=== PATIENT | female | born 1975 | race Caucasian/White ===

== ENCOUNTER → 2018-02-03 13:45 | Outpatient (REF) | payer SELFPAY ==
[2018-02-03 20:47] LABS: HGB 12.1 g/dL (12.0-15.5); Mean Corp. HGB Concentration 32.7 g/dL (32.0-36.0); Mean Corpuscular Volume 97.9 fL (80-95); Mean Platelet Volume 9.9 fL (8.0-11.0); Platelet Count 272 x1000/uL (130-400); RBC 3.78 m/cumm (4.00-5.20); White Blood Cell Count 5.81 k/cumm (4.4-10.8)
[2018-02-03 20:58] LABS: Anion Gap 9.2 mmol/L (3-11); BUN 8 mg/dL (7-18); CO2 27.8 mmol/L (21.0-32.0); CREATININE 0.86 mg/dL (0.55-1.02); Calcium 8.9 mg/dL (8.5-10.1); Chloride 103 mmol/L (98-107); Glucose 104 mg/dL (70-100); Potassium 4.1 mmol/L (3.5-5.1); Sodium 140 mmol/L (136-145)
[2018-02-03 21:15] LABS: Uric Acid 4.4 mg/dL (2.6-6.0)
[2018-02-05 10:44] LABS: CA 125 14 U/mL (0-30)
== END ==
LOC: NCHCN 13:45
PROVIDERS: PCP Nurse Practitioner Family; Visit Provider Nurse Practitioner Family
DX: R19.00 Intra-abdominal and pelvic swelling, mass and lump, unspecified site (principal); I26.99 Other pulmonary embolism without acute cor pulmonale; I27.20 Pulmonary hypertension, unspecified; D53.9 Nutritional anemia, unspecified; R60.1 Generalized edema; M10.9 Gout, unspecified; G47.00 Insomnia, unspecified; M25.50 Pain in unspecified joint
CPT/HCPCS: 80048; 85027; 86304; 84550

== ENCOUNTER 2018-03-12 11:56 | Outpatient (REF) | payer SELFPAY ==
[2018-03-12 20:59] LABS: TSH (W/Ref FT4) 5.19 uIU/mL (0.358-3.74)
[2018-03-12 21:18] LABS: FREE T4 0.87 ng/dL (0.76-1.46)
== END 2018-03-12 12:16 ==
LOC: NCHCN 11:56
PROVIDERS: PCP Nurse Practitioner Family; Visit Provider Nurse Practitioner Family
DX: I27.20 Pulmonary hypertension, unspecified (principal); I51.9 Heart disease, unspecified; I26.99 Other pulmonary embolism without acute cor pulmonale; L65.9 Nonscarring hair loss, unspecified; G47.00 Insomnia, unspecified; M10.9 Gout, unspecified; D53.9 Nutritional anemia, unspecified; G47.33 Obstructive sleep apnea (adult) (pediatric)
CPT/HCPCS: 84439; 84443

== ENCOUNTER 2018-07-09 12:50 | Outpatient (REF) | payer BC, SELFPAY ==
[2018-07-09 21:01] LABS: Abs Immature Grans 0.03 k/cumm (0.0-0.09); Absolute Basophil Count 0.03 k/cumm (0.0-0.2); Absolute Lymphocyte Count 2.19 k/cumm (1.2-3.4); Absolute Monocyte Count 0.55 k/cumm (0.11-0.7); Absolute Neutrophil Count 4.74 k/cumm (1.2-6.7); Basophils % 0.4; Eosinophils % 7.4; HCT 40.6 % (36.0-46.0); HGB 13.3 g/dL (12.0-15.5); Immature Grans % 0.4; Lymphocytes % 26.9; Mean Corp. HGB Concentration 32.8 g/dL (32.0-36.0); Mean Corpuscular Hemoglobin 32.6 pg (27.0-33.0); Mean Corpuscular Volume 99.5 fL (80-95); Mean Platelet Volume 10.6 fL (8.0-11.0); Monocytes % 6.8; Neutrophils % 58.1; Platelet Count 251 x1000/uL (130-400); RBC 4.08 m/cumm (4.00-5.20); RBC Distribution Width 13.1 % (11.7-14.6); White Blood Cell Count 8.14 k/cumm (4.4-10.8)
[2018-07-09 21:33] LABS: Iron 91 ug/dL (50-175)
[2018-07-09 21:37] LABS: Anion Gap 7.6 mmol/L (3-11); BUN 16 mg/dL (7-18); CO2 31.4 mmol/L (21.0-32.0); CREATININE 0.97 mg/dL (0.55-1.02); Calcium 9.2 mg/dL (8.5-10.1); Chloride 104 mmol/L (98-107); Glucose 106 mg/dL (70-100); Potassium 4.3 mmol/L (3.5-5.1); Sodium 143 mmol/L (136-145); TSH (W/Ref FT4) 4.33 uIU/mL (0.358-3.74); Uric Acid 4.5 mg/dL (2.6-6.0)
[2018-07-13 12:20] LABS: CA 125 11 U/mL (0-30)
== END 2018-07-09 13:10 ==
LOC: NCHCN 12:50
PROVIDERS: PCP Nurse Practitioner Family; Visit Provider Nurse Practitioner Family
DX: R19.00 Intra-abdominal and pelvic swelling, mass and lump, unspecified site (principal); E03.9 Hypothyroidism, unspecified; D53.9 Nutritional anemia, unspecified; R60.1 Generalized edema; M10.9 Gout, unspecified; G47.00 Insomnia, unspecified; I26.99 Other pulmonary embolism without acute cor pulmonale; I27.20 Pulmonary hypertension, unspecified; I51.9 Heart disease, unspecified
CPT/HCPCS: 80048; 86304; 83540; 84439; 84443; 84550; 85025

== ENCOUNTER 2018-07-21 00:37 | Outpatient (CLI) | payer BC, SELFPAY ==
--- NOTE | 2018-07-21 13:50 | MERGE_ITS ---
*[facility]* *[facility]* [address] [place] [address] Date of study: 07/21/2018 Transthoracic Echocardiography M-mode, complete 2D, complete spectral Doppler, and color Doppler *STUDY CONCLUSIONS* Summary: 1. Left ventricle: The cavity size was normal. Wall thickness was increased in a pattern of mild LVH. Systolic function was normal. The estimated ejection fraction was 55-60%. Wall motion was normal; there were no regional wall motion abnormalities. 2. Right ventricle: The cavity size was mildly dilated. Wall thickness was normal. Systolic function was normal. 3. Right atrium: The atrium was dilated. 4. Pulmonary arteries: Pulmonary systolic pressure was mildly increased, in the range of 35mm Hg to 40mm Hg. *PATIENT PRESENTATION* Height: 157.5cm ((62in) ) S/D Pressure: 129 / 78 Weight: 127kg ((279.4lb) ) BSA: 2.44m^2 Test start time: 02:00 PM. Test stop time: 03:00 PM. PERFORMING Unknown ORDERING Michelle Cobian Aprn REFERRING Michelle Cobian Aprn *PROCEDURE DATA* Procedure information: The patient was identified by two identifiers. This study was interpreted by [facility]. Pertinent images and digital data are archived for permanent storage and are available for subsequent review. Comparison was made to the study of 10/02/2017. Study status: Routine. Transthoracic echocardiography. M-mode, complete 2D, complete spectral Doppler, and color Doppler. A Transthoracic Echocardiogram was performed. Scanning was performed from the parasternal, apical, subcostal, and suprasternal notch acoustic windows. Images were obtained using an [id number] cardiac ultrasound machine. Image quality was adequate. Study completion: The patient tolerated the procedure well. There were no complications. History: PMH: Pulmonary embolism. RV diastolic dysfunction. Pulmonary HTN. *CARDIAC ANATOMY* Left ventricle: The cavity size was normal. Wall thickness was increased in a pattern of mild LVH. Systolic function was normal. The estimated ejection fraction was 55-60%. Wall motion was normal; there were no regional wall motion abnormalities. Diastolic parameters were normal. Aortic valve: Trileaflet; normal thickness leaflets. Mobility was not restricted. Doppler: Transvalvular velocity was within the normal range. There was no stenosis. There was no significant regurgitation. VTI ratio of LVOT to aortic valve: 0.74. Valve area (VTI): 2.1cm^2. Indexed valve area (VTI): 0.8cm^2/m^2. Peak velocity ratio of LVOT to aortic valve: 0.61. Valve area (Vmax): 1.7cm^2. Indexed valve area (Vmax): 0.7cm^2/m^2. Mean velocity ratio of LVOT to aortic valve: 0.57. Valve area (Vmean): 1.6cm^2. Indexed valve area (Vmean): 0.7cm^2/m^2. Mean gradient (S): 6.9mm Hg. Peak gradient (S): 14.5mm Hg. Aorta: Aortic root: The aortic root was normal in size. Ascending aorta: The ascending aorta was normal in size. Mitral valve: Structurally normal valve. Mobility was not restricted. Doppler: Transvalvular velocity was within the normal range. There was no evidence for stenosis. There was no significant regurgitation. Valve area by pressure half-time: 4.2cm^2. Indexed valve area by pressure half-time: 1.7cm^2/m^2. Peak gradient (D): 4mm Hg. Left atrium: The atrium was normal in size. Right ventricle: The cavity size was mildly dilated. Wall thickness was normal. Systolic function was normal. Pulmonic valve: The pulmonary valve appears to be grossly normal. Doppler: Transvalvular velocity was within the normal range. There was no evidence for stenosis. There was no significant regurgitation. Peak gradient (S): 5mm Hg. Tricuspid valve: Structurally normal valve. Doppler: Transvalvular velocity was within the normal range. There was no evidence for stenosis. There was trivial regurgitation. Pulmonary artery: Pulmonary systolic pressure was mildly increased, in the range of 35mm Hg to 40mm Hg. Right atrium: The atrium was dilated. Pericardium: There was no pericardial effusion. Systemic veins: Inferior vena cava: The vessel was normal in size. Measurements Left ventricle Value 10/02/2017 Reference LV ID, ED, PLAX 4.8 cm 3.3 3.5 - 6.0 LV ID, ES, PLAX 2.8 cm 1.9 2.1 - 4.0 LV PW thickness, ED, PLAX 1.2 cm 1.2 LV end-diastolic volume, 89 ml 1-p A2C LV ejection fraction, 1-p 58 % A2C LV end-diastolic volume, 118 ml 34 1-p A4C LV ejection fraction, 1-p 60 % 66 A4C LV e', lateral 0.146 m/sec 0.086 LV E/e', lateral 7 6 LV e', medial 0.088 m/sec 0.074 LV E/e', medial 11 7 LV e', average 0.117 m/sec 0.08 LV E/e', average 9 6 Ventricular septum Value 10/02/2017 Reference IVS thickness, ED, PLAX 1.3 cm 1.2 LVOT Value 10/02/2017 Reference LVOT ID, A-P 1.9 cm 2.0 LVOT area 2.8 cm^2 3.3 LVOT peak velocity, S 1.16 m/sec 0.83 LVOT mean velocity, S 0.71 m/sec 0.63 LVOT VTI, S 27.2 cm 16.9 LVOT peak gradient, S 5.4 mm Hg 2.7 LVOT mean gradient, S 2.5 mm Hg 1.8 Stroke volume (SV), LVOT 77 ml 55 DP Stroke index (SV/bsa), 31 ml/m^2 21 LVOT DP Aortic valve Value 10/02/2017 Reference Aortic valve peak 1.9 m/sec 1.3 velocity, S Aortic valve mean 1.24 m/sec 0.95 velocity, S Aortic valve VTI, S 37.0 cm 21.9 Aortic mean gradient, S 6.9 mm Hg 3.9 Aortic peak gradient, S 14.5 mm Hg VTI ratio, LVOT/AV 0.74 0.77 Aortic valve area, VTI 2.1 cm^2 2.5 Velocity ratio, peak, 0.61 0.64 LVOT/AV Aortic valve area, peak 1.7 cm^2 2.1 velocity Velocity ratio, mean, 0.57 0.67 LVOT/AV Aortic valve area, mean 1.6 cm^2 2.2 velocity Aortic valve area/bsa, 0.7 cm^2/m^2 0.8 mean velocity Aorta Value 10/02/2017 Reference Aortic root ID, ED 2.8 cm 2.8 Ascending aorta ID, A-P, S 3.3 cm Left atrium Value 10/02/2017 Reference LA ID, A-P, ES 3.7 cm 3.5 LA ID/bsa, A-P 1.5 cm/m^2 1.3 <=2.2 LA area, ES, A4C 21.9 cm^2 15.7 8.8 - 23.4 LA area, ES, A2C 15 cm^2 11 LA volume, ES, 2-p 49 ml 30 LA volume/bsa, ES, 2-p 20 ml/m^2 11 LA/aortic root ratio 1.3 1.24 Mitral valve Value 10/02/2017 Reference Mitral E-wave peak 1 m/sec 0.51 velocity Mitral A-wave peak 0.62 m/sec 0.54 velocity Mitral deceleration time 183 ms 138 150 - 230 Mitral pressure half-time 53 ms 40 Mitral peak gradient, D 4 mm Hg Mitral E/A ratio, peak 1.62 0.94 Mitral valve area, PHT, DP 4.2 cm^2 5.5 Tricuspid valve Value 10/02/2017 Reference Tricuspid regurg peak 2.9 m/sec 4.5 velocity Tricuspid peak RV-RA 33.8 mm Hg 79.8 gradient Right atrium Value 10/02/2017 Reference RA area, ES, A4C 19.5 cm^2 23.5 8.3 - 19.5 Pulmonic valve Value 10/02/2017 Reference Pulmonic peak gradient, S 5 mm Hg 2.5 Legend: (L) and (H) cathy values outside specified reference range. I have personally reviewed the images and have reviewed and edited the reported findings. Electronically signed by Tye Aiken 07/21/2018 15:44
== END 2018-07-21 00:57 ==
PROVIDERS: PCP Nurse Practitioner Family; Visit Provider Nurse Practitioner Family
DX: I26.99 Other pulmonary embolism without acute cor pulmonale (principal); I27.20 Pulmonary hypertension, unspecified
CPT/HCPCS: 93306

== ENCOUNTER 2018-11-04 00:35 | Outpatient (CLI) | payer BC, SELFPAY ==
--- NOTE | 2018-11-04 14:30 | DI.NM_ITS ---
SYMPTOM/DIAGNOSIS: PULMONARY EMBOLUS, SOB, I26.99 VENTILATION PERFUSION LUNG SCAN: Ventilation perfusion lung scan was performed according to the usual protocol with intravenous infusion of 5.0 millicuries of Technetium 99 labeled macro aggregated albumin and inhalation of 25 millicuries of Technetium 99 labeled DTPA. There is very good match between perfusion and ventilation images. No major perfusion defects identified. CONCLUSION: Findings consistent with low probability of pulmonary embolic disease.
== END 2018-11-04 00:55 ==
PROVIDERS: PCP Nurse Practitioner Family; Visit Provider Student in an Organized Health Care Education/Training Program
DX: R06.02 Shortness of breath (principal)
CPT/HCPCS: 78582

== ENCOUNTER 2019-01-29 16:15 | Outpatient (REF) | payer BC, SELFPAY ==
[2019-01-29 21:23] LABS: HCT 42.4 % (36.0-46.0); HGB 13.8 g/dL (12.0-15.5); Mean Corp. HGB Concentration 32.5 g/dL (32.0-36.0); Mean Corpuscular Hemoglobin 32.9 pg (27.0-33.0); Mean Platelet Volume 10.9 fL (8.0-11.0); Platelet Count 220 x1000/uL (130-400); RBC Distribution Width 13.6 % (11.7-14.6); White Blood Cell Count 8.86 k/cumm (4.4-10.8)
[2019-01-29 21:43] LABS: Anion Gap 9.1 mmol/L (3-11); BUN 15 mg/dL (7-18); CO2 30.9 mmol/L (21.0-32.0); CREATININE 0.89 mg/dL (0.55-1.02); Calcium 8.7 mg/dL (8.5-10.1); Chloride 105 mmol/L (98-107); Glucose 123 mg/dL (70-100); Potassium 4.5 mmol/L (3.5-5.1); Sodium 145 mmol/L (136-145); Uric Acid 4.6 mg/dL (2.6-6.0)
[2019-02-01 11:09] LABS: CA 125 13 U/mL (0-30)
== END 2019-01-29 16:35 ==
LOC: NCHCN 16:15
PROVIDERS: PCP Nurse Practitioner Family; Visit Provider Nurse Practitioner Family
DX: R19.09 Other intra-abdominal and pelvic swelling, mass and lump (principal); Z79.899 Other long term (current) drug therapy; M10.9 Gout, unspecified
CPT/HCPCS: 80048; 85027; 86304; 84443; 84550

== ENCOUNTER 2019-08-05 10:31 | Outpatient (REF) | payer BC, SELFPAY ==
[2019-08-05 12:54] LABS: Anion Gap 9.1 mmol/L (3-11); BUN 10 mg/dL (7-18); C-Reactive Protein 0.33 mg/dL (0.0-0.3); CO2 28.9 mmol/L (21.0-32.0); CREATININE 0.86 mg/dL (0.55-1.02); Chloride 101 mmol/L (98-107); Glucose 154 mg/dL (74-106); Potassium 4.4 mmol/L (3.5-5.1); Sodium 139 mmol/L (136-145); TSH (W/Ref FT4) 2.86 uIU/mL (0.36-3.74)
[2019-08-05 13:56] LABS: ESR 25 mm/hr (0-20)
[2019-08-05 18:59] LABS: Rheumatoid Factor <8.6 IU/mL (<12.0)
[2019-08-06 10:17] LABS: Cyclic Citrullinated Peptide <2.5 U/mL (<5.0)
[2019-08-06 15:38] LABS: ANA Titer Pattern 1:160 Speckled
[2019-08-09 08:48] LABS: ANA Interpretation Positive (Negative)
== END 2019-08-05 10:51 ==
LOC: NCHCN 10:31
PROVIDERS: PCP Nurse Practitioner Family; Visit Provider Nurse Practitioner Family
DX: M25.50 Pain in unspecified joint (principal); E03.9 Hypothyroidism, unspecified; Z51.81 Encounter for therapeutic drug level monitoring
CPT/HCPCS: 80048; 85652; 86200; 84443; 86038; 86140; 86431

== ENCOUNTER 2020-05-10 08:29 | Outpatient (REF) | payer BC, SELFPAY ==
[2020-05-10 22:42] LABS: Anion Gap 14.1 mmol/L (3-11); BUN 13 mg/dL (7-18); CO2 25.9 mmol/L (21.0-32.0); CREATININE 1.01 mg/dL (0.55-1.02); Calcium 8.1 mg/dL (8.5-10.1); Calculated LDL 145 mg/dL (<100); Chloride 100 mmol/L (98-107); Cholesterol 231 mg/dL (<200); Estimated GFR 59.82 (mL/min/1.73m2); Glucose 235 mg/dL (74-106); HDL Cholesterol 43 mg/dL (40-60); Potassium 4.3 mmol/L (3.5-5.1); Sodium 140 mmol/L (136-145); Triglyceride 217 mg/dL (<150)
[2020-05-10 22:50] LABS: Hemoglobin A1C 7.2 % (<5.7)
== END 2020-05-10 08:49 ==
LOC: NCHCN 08:29
PROVIDERS: PCP Nurse Practitioner Family; Visit Provider Nurse Practitioner Family
DX: Z00.00 Encounter for general adult medical examination without abnormal findings (principal); E03.9 Hypothyroidism, unspecified; R73.9 Hyperglycemia, unspecified; E66.9 Obesity, unspecified
CPT/HCPCS: 80048; 80061; 83036

== ENCOUNTER 2020-12-14 13:10 | Outpatient (REF) | payer BC, SELFPAY ==
[2020-12-14 13:42] LABS: Uric Acid 4.9 mg/dL (2.6-6.0)
[2020-12-15 09:50] LABS: CA 125 13 U/mL (<30)
== END 2020-12-14 13:11 | disposition home or self-care (01) ==
LOC: NCHCN 13:10
PROVIDERS: PCP Nurse Practitioner Family; Visit Provider Nurse Practitioner Family
DX: I51.9 Heart disease, unspecified (principal); I27.20 Pulmonary hypertension, unspecified; E78.5 Hyperlipidemia, unspecified; E11.40 Type 2 diabetes mellitus with diabetic neuropathy, unspecified; K30 Functional dyspepsia; J44.9 Chronic obstructive pulmonary disease, unspecified; E03.8 Other specified hypothyroidism; M10.9 Gout, unspecified; R19.00 Intra-abdominal and pelvic swelling, mass and lump, unspecified site
CPT/HCPCS: 86304; 84443; 84550

== ENCOUNTER 2021-01-03 08:05 | Outpatient (REF) | payer BC, SELFPAY ==
[2021-01-03 14:33] LABS: Anion Gap 8.8 mmol/L (3-11); BUN 8 mg/dL (7-18); CO2 29.2 mmol/L (21.0-32.0); Calcium 9.1 mg/dL (8.5-10.1); Chloride 102 mmol/L (98-107); Glucose 171 mg/dL (74-106); Potassium 4.7 mmol/L (3.5-5.1); Sodium 140 mmol/L (136-145)
== END 2021-01-03 08:06 | disposition home or self-care (01) ==
LOC: NCHCN 08:05
PROVIDERS: PCP Nurse Practitioner Family; Visit Provider Nurse Practitioner Family
DX: I27.20 Pulmonary hypertension, unspecified (principal)
CPT/HCPCS: 80048

== ENCOUNTER 2021-01-11 00:35 | Outpatient (CLI) | payer BC, SELFPAY ==
--- NOTE | 2021-01-11 11:38 | DI.US_ITS ---
APPROVED REPORT EXAM: Comprehensive 2D, Doppler, and color-flow Echocardiogram Patient Location: Out-Patient Dining Room Host/Hostess: Melanie Reynoso RDCS (AE) Indications: Right Ventricular Diastolic Dysfunction, Pulmonary HTN Other Information Study Quality: Adequate Conclusion Left Ventricle : The left ventricle is normal size. The left ventricular ejection fraction is within the normal range. There is normal left ventricular wall thickness. There is normal LV segmental wall motion. The left ventricular diastolic function is normal. LVEF is 60%. Right Ventricle : The right ventricle is normal size. The right ventricular systolic function is norm al. The RVSP is 26.4 mmHg. Atria : The left atrium size is normal. The right atrium size is normal. Valves: There are no hemodynamically significant valvular lesions. Great Vessels : The aortic root is normal in size. The ascending aorta is normal in size. Aortic arch is not well visualized. IVC is normal in size and collapses >50% with inspiration. Wall motion Left Ventricle The left ventricle is normal size. The left ventricular ejection fraction is within the normal range. There is normal left ventricular wall thickness. There is normal LV segmental wall motion. The left ventricular diastolic function is normal. There is no ventricular septal defect visualized. LVEF is 6 0%. Right Ventricle The right ventricle is normal size. The right ventricular systolic function is normal. The RVSP is 26 .4 mmHg. Atria The left atrium size is normal. The right atrium size is normal. The interatrial septum is intact wit h no evidence for an atrial septal defect. Aortic Valve The aortic valve is normal in structure. Aortic valve is trileaflet. There is no aortic valvular sten osis. No aortic regurgitation is present. Mitral Valve The mitral valve is normal in structure. No evidence of mitral valve stenosis. Trace mitral regurgita tion. Tricuspid Valve The tricuspid valve is normal in structure. There is no tricuspid valve stenosis. Trace to mild tricu spid regurgitation. Pulmonic Valve The pulmonary valve is normal in structure. There is no pulmonic valvular stenosis. There is no pulmo shady valvular regurgitation. Great Vessels The aortic root is normal in size. The ascending aorta is normal in size. Aortic arch is not well vis ualized. IVC is normal in size and collapses >50% with inspiration. Pericardium There is no pericardial effusion. 2D Dimensions IVSD d PLAX 1.02 cm F: 0.6-1.0 LV Vol A2C d MOD 98.5 mL LVPW d PLAX 1.03 cm F: 0.6 - 1.0 LV Vol A4C d MOD 102.7 mL LVID d PLAX 4.67 cm F: 3.8 - 5.2 LA vol/ BSA A2C s A-L 25.4 mL/m2 LVDs 3.05 cm F: 2.2 - 3.5 LA vol/ BSA A4C s A-L 31.4 mL/m2 Ao Root d 2.70 cm F: 2.7 - 3.3 LA Vol/ BSA Biplane s A-L 29.6 mL/m2 RA Area A4C 15.44 cm2 LA Area A4C s MOD 23.11 cm2 RA Vol/ BSA A4C s A-L 16.3 mL/m2 LA Area A2C s MOD 19.85 cm2 Ao Asc Diam d 3.16 cm F: 2.3 - 3.1 LV EF A4C MOD 60.1 % LV EF Teichholz 62.6 % LV EF A2C MOD 59.0 % LVEF (Garcia's) 59.47 % F: 54 - 74 LV EF Biplane MOD 59.5 % LV Volume 72.91 mL F: 46 - 106 SV 59.94 mL LV Volume Index 32.69 mL/m2 F: 29 - 61 SV Index 26.78 mL/m2 LV Vol Biplane MOD 100.8 mL FS 33.75 % M-Mode TAPSE 2.12 cm (M/F) >1.7 LV Diastology MV E' medial 0.111 (>0.07 m/s) E/A Ratio 1.5 LV E/e MED 8.90 (<14) MV E Vmax 0.99 (0.4-1.3 m/s) MV E' lateral 0.136 (>0.1 m/s) MV A Vmax 0.65 (0.4-1.3 m/s) LV E/e LAT 7.30 (<14) MV E/A Ratio 1.46 MV E/E' medial 8.92 MV E/E' lateral 7.31 Aortic Valve LVOT Area 3.44 cm2 AoV Area Vmax 2.56 cm2 LVOT Vmax 1.46 m/s AoV Area/ BSA (Vmax) 1.14 cm2/m2 LVOT Mean Steve. 0.98 m/s MIKAYLA Mean Steve. 2.52 cm2 LVOT Peak Grad 8.5 mmHg MIKAYLA Mean Steve. Index 1.12 cm2/m2 LVOT Mean Grad 4.5 mmHg LVOT VTI 0.290 m LVOT Diam s 2.05 cm AoV Vmax 1.97 m/s Velocity Ratio 0.74 AoV Mean Steve. 1.34 m/s AoV Peak Grad 15.5 mmHg LVOT SV 99.73 mL AoV Mean Grad 8.1 mmHg AoV VTI 0.349 m AoV Area VTI 2.86 cm2 AoV Area/ BSA (VTI) 1.28 cm/m2 Mitral Valve MV DT 200 (160-240 msec) MV PHT 58 msec MV Area PHT 3.79 cm2 MV VTI 0.212 m MV VTI Annulus 0.208 m MV Area VTI 4.60 (4.0-6.0 cm2) Pulmonary Valve PV Vmax 1.17 (0.5-1.5 m/s) RVOT Peak Gr. 1.90 mmHg PV Peak Grad 5.5 mmHg RVOT Mean Gr. 1.05 mmHg PV Mean Grad 2.9 mmHg RVOT VTI 0.161 m PV VTI 0.261 m RVOT Vmax 0.69 m/s Tricuspid Valve TR Peak Grad 23.4 mmHg TR Vmax 2.42 m/s RA Pressure 3.00 mmHg RVSP (TR) 26.4 mmHg
== END 2021-01-11 00:55 ==
PROVIDERS: PCP Nurse Practitioner Family; Visit Provider Nurse Practitioner Family
DX: I51.9 Heart disease, unspecified (principal); I27.20 Pulmonary hypertension, unspecified
CPT/HCPCS: 93306

== ENCOUNTER 2021-02-22 04:57 | Outpatient (CLI) | payer BC, SELFPAY ==
[2021-02-22] MEDS: Inhaler, Assist Device 1 EACH MC (09:11)
[2021-02-22] MEDS: Albuterol HFA 18 GM 200 PUFF INH IH (09:11)
--- NOTE | 2021-02-23 13:06 | W.PFT ---
Date of service: 02/22/21 Time of Service: 08:05 Pulmonary Function Test Result Requesting Provider [place] Indications: Concern for restrictive lung disease Interpretation Spirometry: There is no airflow limitation. There is no significant bronchodilator response. The FVC is low. Lung Volumes: There is mild restriction. Diffusion Capacity: The diffusion is reduced. Airway Pressure: Airways resistance is normal. Impression Mild restrictive lung disease Clinical Correlation therefore is recommended.
== END 2021-02-22 04:58 | disposition home or self-care (01) ==
LOC: RT 05:00
PROVIDERS: PCP Nurse Practitioner Family; Visit Provider Student in an Organized Health Care Education/Training Program
DX: J98.4 Other disorders of lung (principal)
CPT/HCPCS: 94060; 94726; 94729

== ENCOUNTER 2021-10-04 09:24 | Outpatient (REF) | payer BC, SELFPAY ==
[2021-10-04 15:32] LABS: Abs Immature Grans 0.06 10^3/uL (0.0-0.06); Absolute Basophil Count 0.06 10^3/uL (0.0-0.2); Absolute Eosinophil Count 0.38 10^3/uL (0.0-0.7); Absolute Lymphocyte Count 1.81 10^3/uL (1.2-3.4); Absolute Monocyte Count 0.47 10^3/uL (0.1-0.8); Absolute Neutrophil Count 4.89 10^3/uL (1.2-6.7); Basophils % 0.8; HCT 41.1 % (36.0-46.0); HGB 13.6 g/dL (11.2-15.7); Immature Grans % 0.8; Lymphocytes % 23.6; MCH 32.5 pg (27.0-33.0); MCHC 33.1 % (32.0-36.0); MCV 98.1 fL (80-95); MPV 9.6 fL (8.0-11.0); Monocytes % 6.1; Neutrophils % 63.7; Platelet Count 256 10^3/uL (130-400); RBC 4.19 10^6/uL (3.93-5.22); RDW 13.1 % (11.7-14.6); RDW-SD 46.1 fL; WBC 7.67 10^3/uL (4.4-10.8)
[2021-10-04 15:40] LABS: Iron 86 ug/dL (50-170); Total Iron Binding Capacity 367 ug/dL (250-450); Transferrin Sat 23 % (15-50)
[2021-10-04 15:51] LABS: ALT 63 U/L (14-59); AST 34 U/L (15-37); Albumin 3.7 g/dL (3.4-5.0); Alkaline Phosphatase 80 U/L (46-116); Anion Gap 9.4 mmol/L (3-11); BUN 12 mg/dL (7-18); Bilirubin, Total 0.5 mg/dL (0.2-1.0); CO2 27.6 mmol/L (21.0-32.0); CREATININE 0.9 mg/dL (0.55-1.02); Calcium 8.2 mg/dL (8.5-10.1); Chloride 99 mmol/L (98-107); Glucose 257 mg/dL (74-106); Potassium 4.4 mmol/L (3.5-5.1); Sodium 136 mmol/L (136-145); TSH (W/Ref FT4) 3.01 uIU/mL (0.36-3.74); Total Protein 7.1 g/dL (6.4-8.2); Uric Acid 3.3 mg/dL (2.6-6.0)
[2021-10-04 16:29] LABS: Calculated LDL 156 mg/dL (<100); Cholesterol 221 mg/dL (<200); Ferritin 52 ng/mL (8-252); Folate 4.2 ng/mL (8.6-20.0); HDL Cholesterol 45 mg/dL (40-60); Triglyceride 103 mg/dL (<150); Vitamin B12 354 pg/mL (193-986)
[2021-10-08 10:53] LABS: CA 125 18 U/mL (<30)
== END 2021-10-04 09:25 | disposition home or self-care (01) ==
LOC: NCHCN 09:24
PROVIDERS: PCP Nurse Practitioner Family; Visit Provider Nurse Practitioner Family
DX: R19.09 Other intra-abdominal and pelvic swelling, mass and lump (principal); E78.5 Hyperlipidemia, unspecified; E11.9 Type 2 diabetes mellitus without complications; E03.9 Hypothyroidism, unspecified; D53.9 Nutritional anemia, unspecified; F32.9 Major depressive disorder, single episode, unspecified; K30 Functional dyspepsia; E66.9 Obesity, unspecified; M10.9 Gout, unspecified
CPT/HCPCS: 80053; 80061; 86304; 82607; 82728; 82746; 83540; 83550; 84443; 84550; 85025

== ENCOUNTER 2022-04-25 03:15 | Outpatient (CLI) | payer BC, SELFPAY ==
[2022-04-25] MEDS: Inhaler, Assist Device 1 EACH MC (08:54)
[2022-04-25] MEDS: Albuterol HFA 18 GM 200 PUFF INH IH (08:54)
--- NOTE | 2022-04-26 14:46 | W.PFT ---
Date of service: 04/25/22 Time of Service: 08:01 Pulmonary Function Test Result Requesting Provider Bronsone Indications: Restrictive lung disease Interpretation Spirometry: There is no airflow limitation. There is a restrictive appearing pattern to spirometry. No bronchodilator response. Lung Volumes: Normal lung volumes Diffusion Capacity: Decreased diffusion Airway Pressure: Normal airways resistance. Impression Restrictive apirometry with normal lung volumes but a decreased diffusion. Note: When compared to 02/22/21, the total lung capacity has increased, as has the diffusion. Clinical Correlation therefore is recommended.
== END 2022-04-25 03:16 | disposition home or self-care (01) ==
LOC: RT 03:16
PROVIDERS: PCP Nurse Practitioner Family; Visit Provider Student in an Organized Health Care Education/Training Program
DX: J98.4 Other disorders of lung (principal)
CPT/HCPCS: 94060; 94726; 94729

== ENCOUNTER 2022-09-12 14:24 | Outpatient (REF) | payer BC, SELFPAY ==
[2022-09-12 15:23] LABS: Abs Immature Grans 0.04 10^3/uL (0.0-0.06); Absolute Basophil Count 0.04 10^3/uL (0.0-0.2); Absolute Eosinophil Count 0.37 10^3/uL (0.0-0.7); Absolute Lymphocyte Count 1.91 10^3/uL (1.2-3.4); Absolute Monocyte Count 0.48 10^3/uL (0.1-0.8); Absolute Neutrophil Count 4.69 10^3/uL (1.2-6.7); Basophils % 0.5; Eosinophils % 4.9; HGB 13.3 g/dL (11.2-15.7); Immature Grans % 0.5; Lymphocytes % 25.4; MCHC 32.4 % (32.0-36.0); MCV 96 fL (80-95); MPV 10.3 fL (8.0-11.0); Monocytes % 6.4; Neutrophils % 62.3; Platelet Count 242 10^3/uL (130-400); RBC 4.29 10^6/uL (3.93-5.22); RDW 13.4 % (11.7-14.6); RDW-SD 45.5 fL; WBC 7.53 10^3/uL (4.4-10.8)
[2022-09-12 16:08] LABS: ALT 40 U/L (14-59); AST 22 U/L (15-37); Albumin 3.9 g/dL (3.4-5.0); Alkaline Phosphatase 79 U/L (46-116); Anion Gap 7.2 mmol/L (3-11); BUN 14 mg/dL (7-18); Bilirubin, Total 0.4 mg/dL (0.2-1.0); CO2 29.8 mmol/L (21.0-32.0); CREATININE 1.1 mg/dL (0.55-1.02); Calcium 9.3 mg/dL (8.5-10.1); Calculated LDL 139 mg/dL (<100); Chloride 100 mmol/L (98-107); Cholesterol 211 mg/dL (<200); Estimated GFR 62.76 (mL/min/1.73m2); Ferritin 26 ng/mL (8-252); Glucose 140 mg/dL (74-106); HDL Cholesterol 49 mg/dL (40-60); Iron 64 ug/dL (50-170); Potassium 4.3 mmol/L (3.5-5.1); Sodium 137 mmol/L (136-145); TSH (W/Ref FT4) 3.54 uIU/mL (0.36-3.74); Total Iron Binding Capacity 404 ug/dL (250-450); Total Protein 7.3 g/dL (6.4-8.2); Transferrin Sat 16 % (15-50); Triglyceride 116 mg/dL (<150); Vitamin B12 361 pg/mL (193-986)
[2022-09-12 16:11] LABS: Folate > 20.0 ng/mL (8.6-20.0)
[2022-09-12 16:22] LABS: Uric Acid 3.1 mg/dL (2.6-6.0)
== END 2022-09-12 14:25 | disposition home or self-care (01) ==
LOC: NCHCN 14:24
PROVIDERS: PCP Nurse Practitioner Family; Visit Provider Nurse Practitioner Family
DX: E66.9 Obesity, unspecified (principal); G47.33 Obstructive sleep apnea (adult) (pediatric); E78.5 Hyperlipidemia, unspecified; E11.9 Type 2 diabetes mellitus without complications; K76.0 Fatty (change of) liver, not elsewhere classified; D53.9 Nutritional anemia, unspecified; J44.9 Chronic obstructive pulmonary disease, unspecified; M25.50 Pain in unspecified joint
CPT/HCPCS: 80053; 80061; 82607; 82728; 82746; 83540; 83550; 84443; 84550; 85025

== ENCOUNTER 2022-12-05 11:12 | Outpatient (CLI) | payer BC, SELFPAY ==
--- NOTE | 2022-12-05 11:00 | RT.EKG_ITS ---
APPROVED REPORT Exam: Resting ECG Reason for Exam: HF, pulm HTN Patient Location: O HR:81 bpm ECG Measurements Heart Rate 81 AXIS WY 165 P 48 QRSd 85 QRS -26 QT 368 T 39 QTc 428 Conclusion Sinus rhythm...normal P axis, V-rate 50- 99 Borderline left axis deviation...QRS axis (-15,-29) Late transition
== END 2022-12-05 11:13 | disposition home or self-care (01) ==
LOC: DI.CARD 11:13
PROVIDERS: PCP Nurse Practitioner Family; Visit Provider Internal Medicine Cardiovascular Disease
DX: I27.20 Pulmonary hypertension, unspecified (principal); I50.30 Unspecified diastolic (congestive) heart failure; R00.0 Tachycardia, unspecified
CPT/HCPCS: 93010

== ENCOUNTER 2022-12-11 01:35 | Outpatient (CLI) | payer BC, SELFPAY ==
--- NOTE | 2022-12-11 07:00 | DI.NM_ITS ---
Exam(s) MD LUNG SCAN VENT PERF GRP EXAM: MD LUNG SCAN VENT PERF GRP CLINICAL HISTORY: assess for CTEPH, pulmonary HTN, I27.20. TECHNIQUE: Injected Dose: Ventilation: 35 mCi Tc-99m DTPA via inhalation Perfusion: 4.5 mCi Tc-99m MAA via IV COMPARISON: [facility] lung scan vent perf aeros from 11/04/2018 CR XR CHEST ONE VIEW from 10/21/2022 CR XR CHEST 2V PA LATERAL from 12/11/2022 FINDINGS: Chest X-Ray: Clear lungs. Mildly prominent pulmonary arteries. Perfusion: No significant defects. No significant change from prior exam Ventilation:Normal . No significant change from prior exam IMPRESSION: 1. Low probability VQ examination. . . . Modified PIOPED II criteria Probability Criteria High Two or more segments of V/Q mismatch Low Normal Perfusion, Non segmental perfusion abnormalitie s, pleural effusion in at least 1/3 of pleural cavity with no other defect Radiograph/perfusion matched defect in mid to upper lung confined to segment, one to three small segmental perfusion defects (<25% of segment) Perfusion defect smaller than corresponding radiogra phic lesion. Intermediate All other findings DATA REPOSITORY:
--- NOTE | 2022-12-11 08:07 | DI.RAD_ITS ---
Exam(s) XR CHEST 2V PA LATERAL EXAM: XR CHEST 2V PA LATERAL CLINICAL HISTORY: pre-VQ scan, pulmonary HTN, I27.20 TECHNIQUE: 2D digital imaging was performed of the chest. Two images were obtained. PA and lateral views were obtained. COMPARISON: CR PORTABLE CHEST ONE VIEW from 10/03/2017 CR XR CHEST ONE VIEW from 10/21/2022 FINDINGS: MEDIASTINUM: Normal. HEART: Normal. PULMONARY VASCULATURE: There is again seen prominence of the pulmonary vasculature particularly on th e right suggesting pulmonary hypertension. LUNGS: There is increased opacity in the right lung base medially on the frontal view which appears t o lie in the right middle lobe. The left lung is clear. PLEURAL SPACE: No pleural effusion or pneumothorax. BONE:Within normal limits for the patient's age. OTHER FINDINGS:There is an IVC filter present below the hemidiaphragms. IMPRESSION: 1. Opacity in the right lung base medially which appears to lie in the middle lobe. CT scan of the c hest is recommended for further evaluation. 2. Unchanged prominence of the pulmonary vasculature which can be seen with pulmonary artery hyperten chasity. Unexpected findings DATA REPOSITORY: RADIATION DOSE DELIVERED:
== END 2022-12-11 01:55 ==
LOC: DI 01:35
PROVIDERS: PCP Nurse Practitioner Family; Visit Provider Student in an Organized Health Care Education/Training Program
DX: I27.20 Pulmonary hypertension, unspecified (principal); R91.8 Other nonspecific abnormal finding of lung field
CPT/HCPCS: 78582; 71046

== ENCOUNTER → 2023-02-19 01:04 | Outpatient (CLI) | payer BC, SELFPAY ==
--- NOTE | 2023-02-19 07:30 | DI.US_ITS ---
APPROVED REPORT EXAM: Comprehensive 2D, Doppler, and color-flow Echocardiogram Patient Location: Out-Patient Tape Folding Machine Operator: Boris Carvalho RDCS (AE) Indications: bubble study Echo Enhancing Agent Indication: Rule out Shunt Agent(s) / Amount(s) Used: Agitated Saline 40.0 cc Comments: Contrast study was performed with 4 IV injections of 10ccs of agitated normal saline, at [facility], with cough and post valsalva maneuver. Conclusion This is a limited study looking for intracardiac shunting No intracardiac shunt was identified with injection of agitated saline Wall motion Left Ventricle No ventricular septal defect. Atria Saline bubble contrast intravenous injection does not demonstrate PFO.
== END ==
PROVIDERS: PCP Nurse Practitioner Family; Visit Provider Student in an Organized Health Care Education/Training Program
DX: J96.91 Respiratory failure, unspecified with hypoxia (principal)
CPT/HCPCS: 93308

== ENCOUNTER → 2023-08-26 00:50 | Outpatient (CLI) | payer BC, SELFPAY ==
--- NOTE | 2023-08-26 | DI.US_ITS ---
Exam(s) US ABDOMEN LIMITED EXAM: US ABDOMEN LIMITED CLINICAL HISTORY: STEATOSIS OF LIVER,K76.0, FATTY CHANGE OF LIVER TECHNIQUE: Ultrasound abdomen performed using standard protocol. COMPARISON: CT CT CHEST WO from 01/29/2023 FINDINGS: PANCREAS: Normal where visualized. LIVER: There is diffuse increased echogenicity of the liver consistent with fatty infiltration. Hepa topetal flow in the Portal Vein. The liver measures in 21.9 cm length. No evidence of a hepatic mass. GALLBLADDER: No evidence of cholelithiasis. No evidence of wall thickening. No pericholecystic fluid identified. BILIARY SYSTEM: Common bile duct measures < 7 mm. No intrahepatic biliary ductal dilation. TRINH'S SIGN: Negative. RIGHT KIDNEY: Kidney is normal in size. No evidence of renal calculi. No evidence of hydronephrosis. No renal mass or cyst identified. ASCITES: None seen. IMPRESSION: Hepatomegaly and hepatic steatosis. DATA REPOSITORY:
--- NOTE | 2023-08-26 08:05 | DI.MAMMO_ITS ---
Exam(s) MAMMO SCREENING EXAM: MAMMO SCREENING CLINICAL HISTORY: SCREENING, Z12.31 TECHNIQUE: Bilateral full field digital CC and MLO mammographic images were obtained with 3D tomosyn thesis and utilizing computer aided detection (CAD). COMPARISON: This is a baseline examination. FINDINGS: Masses/Architectural Distortion: There is a well-circumscribed 5 mm nodule in the 12 o'clock position of the left breast. No areas of architectural distortion are seen. Microcalcifications: No suspicious pleomorphic-type are seen. Skin Thickening/Nipple Retraction: None. IMPRESSION: 1. Well-circumscribed nodule in the left breast. 2. Spot compression view and limited left breast ultrasound are recommended. BI-RADS Category 0 - Assessment Incomplete: Need additional imaging evaluation Breast Density - Category B - Scattered areas of fibroglandular density Breast density category C or D implies that the patient has dense breast tissue. Dense breast tissue is very common and is not abnormal but dense breast tissue can make it harder to find cancer on a ma mmogram. Also, dense breast tissue may increase their breast cancer risk. This information about the result of the mammogram report was provided to the patient to raise their awareness. Use this report when you speak with the patient about their risks for breast cancer, which includes their family hist ory. At that time, you may recommend for more screening tests (Ultrasound or MRI) as they might be us eful based on their risk. A negative radiographic report should not delay biopsy if a dominant or clinically suspicious mass is present. Up to ten percent of cancers are not identified on mammography. A negative report may reinforce clinical impression. Adenosis and dense breasts may obscure an underlying neoplasm. False positive reports average 6 to 10%. Patient will receive a letter notifying them of these results.
== END ==
PROVIDERS: PCP Nurse Practitioner Family; Visit Provider Nurse Practitioner Family
DX: Z12.31 Encounter for screening mammogram for malignant neoplasm of breast (principal); R16.0 Hepatomegaly, not elsewhere classified
CPT/HCPCS: 77063; 77067; 76705

== ENCOUNTER → 2023-08-28 00:57 | Outpatient (CLI) | payer BC, SELFPAY ==
--- NOTE | 2023-08-28 | DI.US_ITS ---
Exam(s) MG MAMMO SCREEN CALL BACK UNI US BREAST LT COMPLETE EXAM: MG MAMMO SCREEN CALL BACK UNI-LEFT AND COMPLETE LEFT BREAST ULTRASOUND CLINICAL HISTORY: F/U ABNL MAMMO, LT BREAST NODULE,R92.8. TECHNIQUE: Unilateral LEFT BREAST spot mammographic images obtained with 3D tomosynthesisand [employer] ng computer aided detection (CAD). . Complete LEFT breast Ultrasound was also performed, including all 4 quadrants, the retroareolar regio n, and the ipsilateral axilla. COMPARISON: Prior mammograms were reviewed. This additional imaging was performed due to findings described on the recent screening mammogram of 08/26/2023. FINDINGS: DIAGNOSTIC MAMMOGRAM: Additional mammographic views performed todaydoes not dissipate the nodule. We proceeded with ultras ound COMPLETE LEFT BREAST ULTRASOUND: Ultrasound performed today reveals a solitary finding which is at 12 o'clock position corresponds to the finding on the mammogram. This is a wider than taller slightly lobulated solid nodule which cont ains a small calcification, as also seen on the mammogram. This is most probably a small fibroadenom a. There are no other focal findings in all 4 quadrants. Scanning of the left axilla is negative for adenopathy.. IMPRESSION: 1. Probable benign finding. There is a 5 x 3 millimeter solid nodule at the 12 o'clock position cor responding to the finding on the mammogram. This is probably a fibroadenoma. Recent mammogram was h er baseline. Appropriate follow-up as discussed by myself with the patient today is repeat left breast imaging in 6 months to fluid left breast mammogram and ultrasound.. The patient was informed of these findings and recommendations by myself prior to leaving the departm ent today. BI-RADS Category 3 - 6 month - Probably Benign Finding: Recommend follow-up mammography in 6 months Breast Density - Category B - Scattered areas of fibroglandular density Breast density Category C or D implies that the patient has dense breast tissue. Dense breast tissue can make it harder to find cancer on a mammogram. Dense breast tissue is also associated with an incr eased risk of breast cancer. This information about the result of the mammogram report was provided to the patient to raise their awareness. Use this report when you speak with the patient about their risks for breast cancer, which includes their family history. At that time, you may recommend additional screening tests (Ultrasoun d or MRI) as these tests may add significant information. A negative radiographic report should not delay biopsy if a dominant or clinically suspicious mass is present. Up to ten percent of cancers are not identified on mammography. A negative report may reinforce clinical impression. Adenosis and dense breasts may obscure an underlying neoplasm. False positive reports average 6 to 10%. Patient will receive a letter notifying them of these results.
== END ==
PROVIDERS: PCP Nurse Practitioner Family; Visit Provider Nurse Practitioner Family
DX: Z12.31 Encounter for screening mammogram for malignant neoplasm of breast (principal); R92.8 Other abnormal and inconclusive findings on diagnostic imaging of breast
CPT/HCPCS: 76642; 77063; 77067

== ENCOUNTER 2023-11-12 09:29 | Outpatient (REF) | payer BC, SELFPAY ==
[2023-11-12 14:51] LABS: HCT 39.4 % (36.0-46.0); HGB 12.2 g/dL (11.2-15.7); MCH 27.7 pg (27.0-33.0); MCV 89 fL (80-95); MPV 9.9 fL (8.0-11.0); Platelet Count 255 10^3/uL (130-400); RBC 4.41 10^6/uL (3.93-5.22); RDW 15.6 % (11.7-14.6); RDW-SD 50.4 fL
[2023-11-12 15:36] LABS: Hemoglobin A1C 6.6 % (<5.7)
[2023-11-12 15:43] LABS: ALT 26 U/L (14-59); AST 17 U/L (15-37); Albumin 4.1 g/dL (3.4-5.0); Alkaline Phosphatase 71 U/L (46-116); Anion Gap 7.3 mmol/L (3-11); BUN 14 mg/dL (7-18); Bilirubin, Total 0.5 mg/dL (0.2-1.0); CO2 28.7 mmol/L (21.0-32.0); CREATININE 1.2 mg/dL (0.55-1.02); Calcium 9.4 mg/dL (8.5-10.1); Chloride 103 mmol/L (98-107); Estimated GFR 56.19 (mL/min/1.73m2); Ferritin 17 ng/mL (8-252); Folate > 20.0 ng/mL (8.6-20.0); Glucose 131 mg/dL (74-106); Potassium 4.2 mmol/L (3.5-5.1); Sodium 139 mmol/L (136-145); TSH (W/Ref FT4) 1.92 uIU/mL (0.36-3.74); Total Protein 7.5 g/dL (6.4-8.2); Vitamin B12 327 pg/mL (193-986)
[2023-11-12 15:52] LABS: Uric Acid 3.3 mg/dL (2.6-6.0)
[2023-11-12 16:15] LABS: Iron 47 ug/dL (50-170); Total Iron Binding Capacity 439 ug/dL (250-450); Transferrin Sat 11 % (15-50)
[2023-11-12 16:24] LABS: Abs Immature Grans 0.03 10^3/uL (0.0-0.06); Absolute Basophil Count 0.04 10^3/uL (0.0-0.2); Absolute Eosinophil Count 0.35 10^3/uL (0.0-0.7); Absolute Lymphocyte Count 1.67 10^3/uL (1.2-3.4); Absolute Monocyte Count 0.39 10^3/uL (0.1-0.8); Absolute Neutrophil Count 4.31 10^3/uL (1.2-6.7); Basophils % 0.6 %; Eosinophils % 5.2 %; Immature Grans % 0.4 %; Lymphocytes % 24.6 %; Monocytes % 5.7 %; Neutrophils % 63.5 %
[2023-11-13 09:44] LABS: CA 125 12 U/mL (<30)
== END 2023-11-12 09:30 | disposition home or self-care (01) ==
LOC: NCHCN 09:29
PROVIDERS: PCP Nurse Practitioner Family; Visit Provider Nurse Practitioner Family
DX: K76.0 Fatty (change of) liver, not elsewhere classified; D52.0 Dietary folate deficiency anemia; M10.9 Gout, unspecified; E11.9 Type 2 diabetes mellitus without complications
CPT/HCPCS: 80053; 85027; 86304; 82607; 82728; 82746; 83036; 83540; 83550; 84443; 84550; 85025

== ENCOUNTER 2024-03-04 01:56 | Outpatient (CLI) | payer BC, SELFPAY ==
--- NOTE | 2024-03-04 09:45 | DI.MAMMO_ITS ---
Exam(s) MG MAMMO DIAGNOSTIC UNI EXAM: MG MAMMO DIAGNOSTIC UNI CLINICAL HISTORY: ABNL FINDINGS R92.8 6 MO FU TECHNIQUE: Left cc and MLO mammogram images were performed according to the [facility] with CAD system, tomosynthesis and C-view imaging. COMPARISON: MG MG MAMMO SCREENING from 08/26/2023 MG MG MAMMO SCREEN CALL BACK UNI from 08/28/2023 US US BREAST LT COMPLETE from 08/28/2023 FINDINGS: The left breast is composed of scattered fibroglandular densities, Breast Density category B. No suspicious masses or suspicious microcalcifications are seen. Stable circumscribed nodule in th e central left breast consistent with a small fibroadenoma. No skin thickening or abnormal axillary lymph nodes are seen. IMPRESSION: BI-RADS Category 2 - Benign Findings Yearly screening mammography is recommended. Breast Density - Category B, scattered fibroglandular densities. A negative radiographic report should not delay biopsy if a dominant or clinically suspicious mass is present. Up to ten percent of cancers are not identified on mammography. A negative report may reinforce clinical impression. Adenosis and dense breasts may obscure an underlying neoplasm. False positive reports average 6 to 10%. Patient will receive a letter notifying them of these results.
== END 2024-03-04 02:16 ==
LOC: DI 01:57
PROVIDERS: PCP Nurse Practitioner Family; Visit Provider Nurse Practitioner Family
DX: Z12.31 Encounter for screening mammogram for malignant neoplasm of breast (principal); R92.323 Mammographic fibroglandular density, bilateral breasts
CPT/HCPCS: 77061; 77065; G0279

== ENCOUNTER 2024-09-08 08:49 | Emergency (ER) | payer BC, SELFPAY ==
[2024-09-08] VITALS (15 sets, daily range): BP systolic 100–152; BP diastolic 51–78; PULSE 68–88; RESP 16; TEMP 37; O2SAT 97–100
--- NOTE | 2024-09-08 09:22 | W.ED.GENAD ---
Discharge Plan Disposition Patient Disposition: Home Condition: Good Discharge Details Clinical Impression: Nausea vomiting and diarrhea Primary Care Provider: Michelle Cobian ED Provider: Tori Lopez Home Meds and New Rx's Prescriptions: New ondansetron 4 mg tablet,disintegrating 4 mg PO Q6H PRN (Reason: nausea and vomiting) Qty: 14 0RF Continued bupropion HCl 150 mg tablet extended release 24 hr 150 mg PO QAM buspirone 5 mg tablet 5 mg PO BID CPAP 1 unit miscellaneous QHS (DME) Oxygen Tank See Rx Instructions .ROUTE .MEDSUPPLY Qty: 1 Rx Instructions: 2 L/min at rest and 4Lpm with activity melatonin 10 mg capsule 10 mg PO HS PRN Ozempic 0.25 mg or 0.5 mg (2 mg/3 mL) pen injector 0.25 mg subcut QWEEK Rx Instructions: for 4 weeks Eliquis 5 mg tablet 2.5 mg PO BID allopurinol 100 mg tablet 200 mg PO DAILY dapagliflozin propanediol [Farxiga] 10 mg tablet 10 mg PO DAILY duloxetine 30 mg capsule,delayed release(DR/EC) 30 mg PO DAILY folic acid 1 mg tablet 1 mg PO DAILY gabapentin 400 mg capsule 400 mg PO BID Patient Comments: Pt states she takes 400 mg in the AM and 800 mg at night lisinopril 5 mg tablet 5 mg PO DAILY Opsumit 10 mg tablet 10 mg PO DAILY sildenafil (pulm.hypertension) [Revatio] 20 mg tablet 20 mg PO TID Rx Instructions: administer doses at least 4-6 hours apart furosemide 20 mg tablet 20 mg PO DAILY Discharge Instructions Instructions: Diarrhea, Adult ED, Nausea and Vomiting, Adult ED Additional Instructions: As we discussed, your labs are reassuring. You are slightly anemic which is not surprising given your recent surgery. Your potassium is also barely below. You may be eating more potassium rich foods when you are able to tolerate a meal. This does not appear to be associated with your recent surgery but I do encourage you to reach out to [facility] and let them know about your illness in the postoperative setting. Please continue to encourage hydration as we discussed. Please continue with postoperative instructions as recommended by [facility]. You may use the Zofran as prescribed for any recurrent nausea or vomiting. Please hold off on Imodium at this point as your diarrhea seems to have slowed. I am concerned to make you constipated in the postoperative setting may increase your discomfort. However, if your diarrhea becomes to be more frequent you may take this as prescribed on the packaging. Please take care not to overtreat and developed constipation. Stable hydrated cannot prevent this. Please follow-up with [facility] as previously recommended. If you develop increased pain, fever/chills, inability stay hydrated or other new/worsening symptom please seek care urgently once again. Referrals: Michelle Cobian [Primary Care Provider] - Discharge Data Discharge Date/Time-TO BE ENTERED AT DEPARTURE: 09/08/24 10:54 HPI General Date/Time Provider Initiated Documentation: 09/08/24 08:59. Limitations to Documentation: no limitations. Information obtained by: patient, family (), RN notes reviewed and old records reviewed. History of Present Illness 49 year old F presents to the emergency department with the chief complaint of nausea, vomiting, diarrhea, described as moderate, Quality is described as other (denies any pain), Patient started experiencing this day(s) and it has been intermittent (improving). No relieving factors improve symptom(s), Eating worsens symptoms . Patient notes no other symptoms.. Patient did receive the following treatments prior to arrival, none Related Data Home Medications ?Medication ?Instructions ?Recorded ?Confirmed bupropion HCl 150 mg 24 hr tablet, 150 mg PO QAM 10/28/18 09/08/24 extended release CPAP 1 unit miscellaneous QHS 07/09/19 09/08/24 buspirone 5 mg tablet 5 mg PO BID 07/09/19 09/08/24 Oxygen #1 ea 05/02/21 09/08/24 dapagliflozin propanediol 10 mg 10 mg PO DAILY 11/04/22 09/08/24 tablet (Farxiga) duloxetine 30 mg capsule,delayed 30 mg PO DAILY 11/04/22 09/08/24 release folic acid 1 mg tablet 1 mg PO DAILY 11/04/22 09/08/24 allopurinol 100 mg tablet 200 mg PO DAILY 12/05/22 09/08/24 apixaban 5 mg tablet (Eliquis) 2.5 mg PO BID 12/05/22 09/08/24 gabapentin 400 mg capsule 400 mg PO BID 12/05/22 09/08/24 lisinopril 5 mg tablet 5 mg PO DAILY 12/05/22 09/08/24 melatonin 10 mg capsule 10 mg PO HS PRN 12/05/22 09/08/24 semaglutide 0.25 mg or 0.5 mg (2 0.25 mg subcut QWEEK 01/30/23 09/08/24 mg/3 mL) subcutaneous pen injector (Ozempic) furosemide 20 mg tablet 20 mg PO DAILY 09/08/24 09/08/24 macitentan 10 mg tablet (Opsumit) 10 mg PO DAILY 09/08/24 09/08/24 ondansetron 4 mg disintegrating 4 mg PO Q6H PRN nausea and 09/08/24 tablet vomiting #14 tabs sildenafil (pulm.hypertension) 20 20 mg PO TID 09/08/24 09/08/24 mg tablet (Revatio) Previous Rx's ?Medication ?Instructions ?Recorded ondansetron 4 mg disintegrating 4 mg PO Q6H PRN nausea and 09/08/24 tablet vomiting #14 tabs Allergies Allergy/AdvReac Type Severity Reaction Status Date / Time No Known Allergies Allergy Unverified 01/30/23 14:24 General Stated Complaint: Nausea/Vomit/Diar JADA: 3 Review of Systems Constitutional Constitutional: Reports as per HPI, Denies chills, Denies fever(s) and Denies headache(s) ENT Ears, Nose, Mouth, and Throat: Denies headache(s) Cardiovascular Cardiovascular: Reports as per HPI, Denies chest pain and Denies dyspnea Respiratory Respiratory: Reports as per HPI, Denies cough and Denies dyspnea Gastrointestinal Gastrointestinal: Reports as per HPI Musculoskeletal Musculoskeletal: Reports as per HPI and Denies back pain Integumentary/Breasts Skin/Breast: Reports as per HPI and Denies rash Neurologic Neurologic: Reports as per HPI and Denies headache(s) Exam Const General: cooperative, healthy appearing, comfortable, no acute distress and well developed Nutritional Appearance: well nourished Orientation: alert and awake [facility] Head: normal to inspection Mouth: moist mucous membranes Resp Effort & Inspection: normal respiratory effort, able to speak in complete sentences and no respiratory distress Auscultation: clear to auscultation bilaterally, no rales, no rhonchi and no wheezes Cardio Rate: regular rate Rhythm: regular rhythm Heart Sounds: S1 normal and S2 normal GI Inspection: non-distended, incision (1 cm spitting stitch, wound appears to be healing well with no evidence of ) and obesity Palpation: soft, no hepatosplenomegaly, no guarding, no masses and nontender Percussion: normal to percussion Auscultation: normal bowel sounds Back/Spine/Pelvis Back: no CVA tenderness Skin General skin exam: other (incision on abdomen) Neuro General: patient alert and patient awake Cognition: normal cognition Speech: speech normal Gait: normal gait Course Vital Signs Vital signs: Vital Signs Temperature 37.0 C 09/08/24 08:52 Pulse 88 09/08/24 08:52 Respiratory Rate 16 09/08/24 08:52 Blood Pressure 152/78 H 09/08/24 08:52 Pulse Oximetry 99 09/08/24 08:52 Temperature 37.0 C 09/08/24 09:07 Temperature Source Oral 09/08/24 09:07 Pulse 88 09/08/24 09:07 Respiratory Rate 16 09/08/24 09:07 Blood Pressure 152/78 H 09/08/24 09:07 Blood Pressure Position Sitting 09/08/24 09:07 Pulse Oximetry 99 09/08/24 09:07 Oxygen Delivery Method Nasal Cannula 09/08/24 09:07 Oxygen Flow Rate 4 09/08/24 09:07 Pain Level 4 09/08/24 09:07 Medical Decision Making Patient is a pleasant 49-year-old female, accompanied by her , presenting to be chief complaint of nausea, vomiting and diarrhea. Patient has complex medical history including pulmonary emboli causing right-sided heart strain, currently anticoagulated and on 4 L nasal cannula at baseline. She also had a recent surgery on 08/30/2024 for a large pelvic mass that was attached to her uterus. Was discharged on 09/01/2024. She denies any postoperative complications or intraoperative complications, and is back on her anticoagulation any after surgery. States that is otherwise been feeling well, pain is not increased and she is not using any pain medications currently in the postoperative setting. States that about 4 days ago she began having nausea, vomiting and diarrhea. Denies any blood in her emesis or stool. No change in urinary habits. States that she has been trying to take some sips of fluids but has had difficulty hydrating secondary to the nausea and vomiting. She denies any chest pain or shortness of breath. On exam, patient appears nontoxic. Resting comfortably no acute distress. Hemodynamically stable. Lungs are clear, normal cardiac exam. Exam of the abdomen shows a well-healing surgical incision midline. She was spitting a stitch about 1 cm in length which was trimmed back. No opening or separation of the wound edges. Abdomen is nontender. Bowel sounds are normal. Her history, will concerning with recent surgery, is not suggestive of surgical complication. Rather, it seems that patient is likely suffering from viral illness or other GI pathogen. She did have 1 round of antibiotics prior to surgery but has not had any since then. With the emesis as well, which seems to be her primary concern, unlikely to be C. difficile. Will obtain baseline labs, hydrate the patient and give antiemetic. Labs are reassuring. Discussed with patient. Patient feeling significantly improved after IV Zofran and fluids. She feels ready for discharge to home. I did encourage that she return to her surgical team this is possible to do let them know about her acute illness. Strict return precautions were discussed. Will continue with the antiemetics. We also discussed the use of Imodium. However, as she reports that her diarrhea has slowed we will hold off at this point. I am concerned that in beginning her on Imodium may cause constipation which would increase her discomfort in the postoperative setting. Patient and feels safe and agreed with this plan. She does seem to have good support. She is able to return with any new or worsening symptoms. All of her questions and concerns were addressed she is in agreement this plan. This documentation was generated using [employer] dictation system, please disregard any oddities of phrase or misspellings. Quality:SDOH Health Related Social Needs: No Data to Display PFSH All Active Problems (Updated 09/08/24 @ 10:34 by NGOC Vicente) Nausea vomiting and diarrhea (Acute) Respiratory failure with hypoxia (Acute) Abnormal chest xray (Acute) Gout (Chronic) Pelvic mass (Acute) Diabetes mellitus (Chronic) Pulmonary HTN (Acute) Restrictive lung disease (Acute) Multiple pulmonary nodules (Acute) Neuropathy (Acute) Dyspepsia (Acute) Urinary frequency (Acute) Hyperthyroidism (Chronic) Hair loss (Acute) Insomnia (Acute) Tachycardia (Acute) Depression (Chronic) Pulmonary embolism (Chronic) (HFpEF) heart failure with preserved ejection fraction (Acute) Pelvic mass in female (Acute) Anasarca (Acute) Ascites (Acute) Pleural effusion (Acute) Medical History COPD (chronic obstructive pulmonary disease) DVT (deep venous thrombosis) Obesity LEATHA on CPAP Surgical History S/P IVC filter (~09/2017) Family History Father Heart disease Mother Heart disease Brother Asthma Allergy Social History Smoking/Tobacco Use Status: Former Tobacco Use Quit Date: 09/22/17 Smoking risk assessment performed?: Yes Alcohol Intake: current Alcohol Intake frequency: holidays/special occasions only Drug use: Never What type of physical activity do you participate in: none Do you feel safe in your relationship?: Yes
[2024-09-08] MEDS: Lactated Ringers 1,000 ML 1000 ML IV (09:29)
[2024-09-08] MEDS: Ondansetron 4 MG/2 ML VIAL IVP (09:35)
[2024-09-08 09:37] LABS: Absolute Basophil Count 0.04 10^3/uL (0.0-0.2); Absolute Eosinophil Count 0.27 10^3/uL (0.0-0.7); Absolute Lymphocyte Count 1.46 10^3/uL (1.2-3.4); Absolute Monocyte Count 0.68 10^3/uL (0.1-0.8); Basophils % 0.4 %; HCT 35.5 % (36.0-46.0); Immature Grans % 1.1 %; Lymphocytes % 16.3 %; MCH 29.1 pg (27.0-33.0); MCV 94 fL (80-95); MPV 9.1 fL (8.0-11.0); Monocytes % 7.6 %; Neutrophils % 71.6 %; Nucleated RBC 0.4 % (0.0-0.3); Platelet Count 260 10^3/uL (130-400); RBC 3.78 10^6/uL (3.93-5.22); RDW 15.4 % (11.7-14.6); RDW-SD 51.6 fL; WBC 8.95 10^3/uL (4.4-10.8)
[2024-09-08 10:02] LABS: ALT 24 U/L (14-59); AST 20 U/L (15-37); Albumin 3.2 g/dL (3.4-5.0); Alkaline Phosphatase 55 U/L (46-116); Anion Gap 7.2 mmol/L (3-11); BUN 10 mg/dL (7-18); Bilirubin, Total 0.6 mg/dL (0.2-1.0); CO2 32.8 mmol/L (21.0-32.0); CREATININE 0.9 mg/dL (0.55-1.02); Chloride 100 mmol/L (98-107); Estimated GFR 78.86 (mL/min/1.73m2); Glucose 123 mg/dL (74-106); Magnesium 1.9 mg/dL (1.8-2.4); Potassium 3.4 mmol/L (3.5-5.1); Sodium 140 mmol/L (136-145); Total Protein 6.4 g/dL (6.4-8.2)
== END 2024-09-08 10:54 | disposition home or self-care (01) ==
PROVIDERS: Emergency Provider Physician Assistant; PCP Nurse Practitioner Family
DX: R11.2 Nausea with vomiting, unspecified (principal); R19.7 Diarrhea, unspecified; I27.20 Pulmonary hypertension, unspecified; J44.9 Chronic obstructive pulmonary disease, unspecified; I50.32 Chronic diastolic (congestive) heart failure; Z86.718 Personal history of other venous thrombosis and embolism; Z86.711 Personal history of pulmonary embolism; Z90.710 Acquired absence of both cervix and uterus; Z98.890 Other specified postprocedural states; Z79.01 Long term (current) use of anticoagulants; Z99.81 Dependence on supplemental oxygen; Z87.891 Personal history of nicotine dependence
CPT/HCPCS: 36415; 80053; 96361; 96374; 99284; 83735; 85025; J2405

== ENCOUNTER 2024-09-30 17:32 | Outpatient (REF) | payer BC, SELFPAY ==
[2024-09-30 21:06] LABS: Abs Immature Grans 0.03 10^3/uL (0.0-0.06); Absolute Basophil Count 0.03 10^3/uL (0.0-0.2); Absolute Eosinophil Count 0.27 10^3/uL (0.0-0.7); Absolute Lymphocyte Count 1.89 10^3/uL (1.2-3.4); Absolute Monocyte Count 0.53 10^3/uL (0.1-0.8); Absolute Neutrophil Count 4.15 10^3/uL (1.2-6.7); Basophils % 0.4 %; Eosinophils % 3.9 %; HCT 35.6 % (36.0-46.0); HGB 10.7 g/dL (11.2-15.7); Immature Grans % 0.4 %; Lymphocytes % 27.4 %; MCH 27.4 pg (27.0-33.0); MCHC 30.1 % (32.0-36.0); MCV 91 fL (80-95); MPV 10.1 fL (8.0-11.0); Monocytes % 7.7 %; Neutrophils % 60.2 %; Platelet Count 207 10^3/uL (130-400); RBC 3.91 10^6/uL (3.93-5.22); RDW 14.5 % (11.7-14.6); RDW-SD 47.8 fL
[2024-09-30 21:25] LABS: Iron 25 ug/dL (50-170); Total Iron Binding Capacity 425 ug/dL (250-450); Transferrin Sat 6 % (15-50)
[2024-09-30 21:49] LABS: ALT 28 U/L (14-59); AST 15 U/L (15-37); Alkaline Phosphatase 57 U/L (46-116); BUN 11 mg/dL (7-18); Bilirubin, Total 0.2 mg/dL (0.2-1.0); CREATININE 0.9 mg/dL (0.55-1.02); Calcium 9.1 mg/dL (8.5-10.1); Calculated LDL 110 mg/dL (<100); Chloride 106 mmol/L (98-107); Cholesterol 195 mg/dL (<200); Estimated GFR 78.86 (mL/min/1.73m2); Ferritin 14 ng/mL (8-252); Glucose 100 mg/dL (74-106); HDL Cholesterol 56 mg/dL (>or=50); Potassium 4.5 mmol/L (3.5-5.1); Sodium 144 mmol/L (136-145); TSH (W/Ref FT4) 2.49 uIU/mL (0.36-3.74); Total Protein 7.2 g/dL (6.4-8.2); Triglyceride 145 mg/dL (<150)
== END 2024-09-30 17:33 | disposition home or self-care (01) ==
LOC: NCHCN 17:32
PROVIDERS: PCP Nurse Practitioner Family; Visit Provider Nurse Practitioner Family
DX: R51.9 Headache, unspecified (principal); E11.9 Type 2 diabetes mellitus without complications; E78.5 Hyperlipidemia, unspecified
CPT/HCPCS: 80053; 80061; 82728; 83540; 83550; 84443; 85025

== ENCOUNTER 2024-12-29 02:08 | Outpatient (CLI) | payer BC, SELFPAY ==
--- NOTE | 2024-12-29 08:07 | DI.MAMMO_ITS ---
Exam(s) MAMMO SCREENING EXAM: MAMMO SCREENING CLINICAL HISTORY: Screening Z12.31 TECHNIQUE: Mammograms were interpreted according to the usual protocol including computer analysis with CAD system, tomosynthesis and C-view imaging. COMPARISON: 2023 FINDINGS: The breasts are composed of scattered fibroglandular densities, Breast Density category B. No suspicious masses or suspicious microcalcifications are seen. Stable small nodule central left breast. No skin thickening or abnormal axillary lymph nodes are seen. There has been no significant change from prior exams. IMPRESSION: BI-RADS Category 2 - Benign Findings Yearly screening mammography is recommended. Breast Density - Category B - There are scattered areas of fibroglandular density. Breast density Category C or D implies that the patient has dense breast tissue. Dense breast tissue can make it harder to find cancer on a mammogram. Dense breast tissue is also associated with an increased risk of breast cancer. This information about the result of the mammogram report was provided to the patient to raise their awareness. Use this report when you speak with the patient about their risks for breast cancer, which includes their family history. At that time, you may recommend additional screening tests (Ultrasound or MRI) as these tests may add significant information. A negative radiographic report should not delay biopsy if a dominant or clinically suspicious mass is present. Up to ten percent of cancers are not identified on mammography. A negative report may reinforce clinical impression. Adenosis and dense breasts may obscure an underlying neoplasm. False positive reports average 6 to 10%. Patient will receive a letter notifying them of these results.
== END 2024-12-29 02:28 ==
LOC: DI 02:08
PROVIDERS: PCP Nurse Practitioner Family; Visit Provider Nurse Practitioner Family
DX: Z12.31 Encounter for screening mammogram for malignant neoplasm of breast (principal); R92.323 Mammographic fibroglandular density, bilateral breasts
CPT/HCPCS: 77063; 77067

== ENCOUNTER 2025-02-03 10:31 | Outpatient (REF) | payer BC, SELFPAY ==
[2025-02-03 16:13] LABS: Abs Immature Grans 0.03 10^3/uL (0.0-0.06); HCT 35.5 % (36.0-46.0); HGB 10.5 g/dL (11.2-15.7); Immature Grans % 0.5 %; MCH 25.5 pg (27.0-33.0); MCHC 29.6 % (32.0-36.0); MCV 86 fL (80-95); MPV 9.5 fL (8.0-11.0); Platelet Count 246 10^3/uL (130-400); RBC 4.12 10^6/uL (3.93-5.22); RDW 15.5 % (11.7-14.6); RDW-SD 48.0 fL; WBC 6.38 10^3/uL (4.4-10.8)
[2025-02-03 16:26] LABS: ESR 17 mm/hr (0-20)
[2025-02-03 17:33] LABS: Iron 29 ug/dL (50-170); Total Iron Binding Capacity 466 ug/dL (250-450); Transferrin Sat 6 % (15-50)
[2025-02-03 18:13] LABS: Ferritin 9 ng/mL (8-252)
[2025-02-03 18:56] LABS: Uric Acid 3.9 mg/dL (2.6-6.0)
[2025-02-03 18:57] LABS: C-Reactive Protein < 0.50 mg/dL (<or=0.5)
== END 2025-02-03 10:32 | disposition home or self-care (01) ==
LOC: NCHCN 10:31
PROVIDERS: PCP Nurse Practitioner Family; Visit Provider Nurse Practitioner Family
DX: D50.9 Iron deficiency anemia, unspecified (principal); M10.9 Gout, unspecified; M25.59 Pain in other specified joint
CPT/HCPCS: 85652; 82728; 83540; 83550; 84550; 85025; 86038; 86140; 86431